=== PATIENT | female | born 1975 | race Caucasian/White ===

== ENCOUNTER 2024-03-21 04:24 | Emergency (ER) | payer OTHER, SELFPAY ==
[2024-03-21 04:24] VITALS: BMI 26.1
[2024-03-21 04:34] VITALS: BP 139/96
[2024-03-21 05:30] VITALS: BP 132/99
--- NOTE | 2024-03-21 06:24 | ED.GENMED ---
History of Present Illness
General
Chief Complaint: Musculo-Skeletal Complaint
Source: patient
Exam Limitations: none
Time Seen by Provider: 03/21/24 06:09
Nursing documentation reviewed up to this point in time: agreed with
History of Present Illness
History of Present Illness:
49-year-old female with history as documented presents for evaluation of a left foot injury. Patient reports that yesterday she was walking in slippers and hyper dorsiflexed the foot/first toe at the MTP joint. She had immediate pain in the
foot/base of the first toe. She was treating with ibuprofen but says that she is still in significant pain this morning so came to be evaluated. She denies any other injuries or complaints.
Review of Systems
Review of Systems
All Other Systems: ROS reviewed and negative except as documented in HPI and ROS
Musculoskeletal: Reports other (Foot injury)
Phy Exam
Physical Exam
Physical Exam:
General: Well appearing and non-toxic
HEENT: protecting airway
Neck: appears supple
CV: No evidence of cyanosis
Resp: No accessory muscle use
Abd: Non-distended
Extremities: Patient has no tenderness in the left knee or along the fibula; she has no tenderness of the medial or lateral malleolus on the left; she has no tenderness along the fifth metatarsal or the midfoot; she has no tenderness of the
calcaneus; she has point tenderness the medial aspect of the distal metatarsal/base of the first toe; she has significant pain with attempts at dorsiflexion of the first toe; she does have a good palpable DP and PT pulse, no swelling or edema
Neuro: Alert
Psych: Normal affect
Skin: Intact
Scores
Heart Failure Risk
Heart Failure Risk Score: Not Applicable
Heart Score for Chest Pain Patients
STEMI patient?: Not applicable
Withdrawal Assessment of Alcohol
Withdrawal Assessment Completed?: Not applicable
Course
Orders/Labs/Results
Orders:
Orders
03/21/24 04:39
Foot, Left 3 View [CR Foot - Left Min 3 Views] Urgent
Comment:
Reason For Exam: pain, injury
03/21/24 06:19
Ortho Boot Left- Treatment ONCE
Short or tall?: Short
Vital Signs
Initial and Last Documented VS:
Initial Vital Signs
Temp Pulse Resp BP Pulse Ox
37.1 C 79 20 139/96 97
03/21/24 04:34 03/21/24 04:34 03/21/24 04:34 03/21/24 04:34 03/21/24 04:34
Last Documented Vital Signs
Temp Pulse Resp BP Pulse Ox
37.1 C 75 16 132/99 97
03/21/24 04:34 03/21/24 05:30 03/21/24 05:30 03/21/24 05:30 03/21/24 05:30
MDM/Problems Addressed
Differential Diagnosis Includes:
Fracture, sprain
MDM/Problems Addressed:
49-year-old female presents for evaluation after foot injury yesterday. Exam as above. Sent for an x-ray which was reviewed independently by me and shows fracture of the distal first metatarsal. Placed in a Ortho boot, will refer to podiatry as
an outpatient. Patient is comfortable with this plan.
*Radiology
Radiology exam reviewed: preliminary read by ED provider
*Pulse Oximetry
Patient hypoxic: no
*Critical Care Note
Total Time (30-74mins, 75-104mins- exclusive of procedures): Not Applicable
ED Attending Note
-
Portions of this chart may have been created with voice recognition software.� Occasional wrong word or��sound alike� substitutions may have occurred due to the inherent limitations of voice recognition software.
Discharge Plan
Departure
Patient Disposition: Home (Routine Discharge)
Date of Disposition: 03/21/24
Time of Disposition: 06:19
Patient with high blood pressure during this ER visit?: No
Discharge Problem:
Fracture of first metatarsal bone
Instructions: Foot Avulsion Fracture (DC)
Referrals:
Jt Denson MD [Family Provider] -
Evin Zarate DPM [Active] - Call in 1-3 days for appt (Project Admin)
Activity Restrictions/Additional Instructions:
Thank you for visiting the Emergency Department at [facility].
1. Please schedule a follow up appointment as directed. Call first thing tomorrow morning to make an appointment.
2. If indicated, please take your medications as instructed and indicated on discharge paperwork.
3. If any of your symptoms do not improve, or persist, or become more severe within 6-12 hours, please return to the emergency department for further care.
4. Please return to the emergency department if you develop a headache, neck pain/stiffness, fever greater than 100.4F, chest pain, shortness of breath, persistent nausea, vomiting, slurred speech, difficulty walking, numbness/tingling, weakness,
signs of infection or any other symptoms that are worrisome to you.
Please call [phone] if you have any questions.
Interventions
Interventions:
*Risk Screen - Suicide Last Done: 03/21/24 04:34
*General Assessment Last Done: 03/21/24 04:34
*Neglect/Abuse Screening Last Done: 03/21/24 04:34
ED- Fall Risk Assessment Last Done: 03/21/24 04:34
*ED COVID-19 Vaccine History Last Done: 03/21/24 04:34
ED-Musculoskeletal Assessment Last Done: 03/21/24 05:31
Discharge Date and Time
Print Language: TUNISIAN
== END 2024-03-21 06:32 | disposition home or self-care (01) ==
LOC: EMR 04:24
PROVIDERS: EMERGENCY PHYSICIAN Emergency Medicine; FAMILY PHYSICIAN Family Medicine
DX: S92.312A Displaced fracture of first metatarsal bone, left foot, initial encounter for closed fracture (principal); X58.XXXA Exposure to other specified factors, initial encounter; Y93.01 Activity, walking, marching and hiking
CPT/HCPCS: 99283; 73630